=== PATIENT | male | born 1975 | race Two or more races ===

== ENCOUNTER 2024-08-25 19:48 | Inpatient (IN) | payer OTHER ==
[~2024-08-25] VITALS: Ht 177.8 cm; Wt 110.7 kg
[2024-08-25] MEDS ORDERED: [UNRECOGNIZED DRUG - OTHER] PO (20:08)
--- NOTE | 2024-08-25 20:11 | NUR ---
PTE ALERTA Y ORIENTADO X3, SE RAINA SV. PTE REFIERE QUE SE REALIZO [facility]. DR. SHAHZAD WEST ORDENO QUE VINIERA PARA EDWARD DE EMERGENCIAS PARA SER ADMITIDO. SE UBICA EN CAMA AREA DE OBSERVACION.
[2024-08-25] MEDS ORDERED: PANTOPRAZOLE SODIUM 40 MG/VIAL VIAL IV SCH (20:28)
[2024-08-25] MEDS ORDERED: 0.9 % SODIUM CHLORIDE 1,000 ML IV SCH (20:30)
[2024-08-25] MEDS ORDERED: ACETAMINOPHEN 500 MG GEL..CAP PO PRN (20:30)
[2024-08-25] MEDS ORDERED: ONDANSETRON HCL 4 MG in 0.9 % SODIUM CHLORIDE 50 ML IV PRN (20:30)
--- NOTE | 2024-08-25 20:47 | NUR ---
PACIENTE CON ORDENES DE ADMISION DIRECTA.
[2024-08-25 21:39] LABS: INR 1.05; PARTIAL THROMBOPLASTIN TIME 25.1 SECONDS (22.0-34.0); PROTHROMBIN TIME 11.4 SECONDS (9.0-11.5)
[2024-08-25 21:45] LABS: ALBUMIN 4.2 gm/dL (3.4-5.0); BILIRUBIN TOTAL 0.6 mg/dL (0.3-1.2); CALCIUM 8.8 mg/dL (8.5-10.1); CREATININE SERUM 1.17 mg/dL (0.70-1.30); GFR 66.54; GLOBULINA 3.5 G/DL (2.4-3.5); POTASSIUM 3.82 mEq/L (3.5-5.1); TOTAL PROTEIN 7.7 gm/dL (6.4-8.2)
[2024-08-25 21:52] LABS: COL EPI 81 SECONDS (82-175)
[2024-08-25 22:26] LABS: HEMATOCRIT 33.9 % (39.0-48.0); HEMOGLOBIN 11.4 g/dL (13-16.00); MEAN CELL VOLUME 82.2 fL (80.0-100.00); MEAN CORPUSCULAR HEMOGLOBIN 27.7 pg (27.00-32.0); MEAN CORPUSCULAR HGB CONC 33.7 g/dl (32.0-36.0); RED BLOOD COUNT 4.12 M/uL (4.00-6.00); RED CELL DISTRIBUTION WIDTH 17.8 % (11.5-14.5)
[2024-08-25 22:34] LABS: PLATELET COUNT 21 K/uL (150-450)
[2024-08-25 23:14] LABS: PH,URINE 6.5 (5.0-8.0); URINE APPEARANCE Clear; URINE BILIRRUBIN Negative (NEGATIVE); URINE BLOOD Negative; URINE COLOR Dark Yellow; URINE GLUCOSE Negative (NEGATIVE); URINE KETONE Negative (NEGATIVE); URINE LEUKOCYTE Negative; URINE NITRATE Negative; URINE PROTEIN Negative (NEGATIVE)
[2024-08-25 23:17] LABS: URINE BACTERIA 25.2 uL (0.0-1933); URINE RBC 2.4 uL (0.0-20.8)
[2024-08-25 23:21] LABS: URINE EPITHELIAL CELLS 0.3 uL (0.0-38.8); URINE WBC 0.6 uL (0.0-23.2)
[2024-08-26] MEDS ORDERED: CEFEPIME HCL 2,000 MG in 0.9 % SODIUM CHLORIDE 100 ML IV SCH (01:00)
[2024-08-26 03:05] VITALS: BP 100/60; O2SAT 95
[2024-08-26 08:40] VITALS: BP 92/50
[2024-08-26] MEDS ORDERED: IRON FUM,PS/FOLIC/BCOMP,C NO.9 1 CAP CAPSULE PO SCH (09:00)
[2024-08-26 18:15] VITALS: BP 108/50; O2SAT 98
[2024-08-26 20:42] LABS: HEMOGLOBIN 10.6 g/dL (13-16.00); MEAN CELL VOLUME 82.8 fL (80.0-100.00); MEAN CORPUSCULAR HEMOGLOBIN 27.5 pg (27.00-32.0); MEAN CORPUSCULAR HGB CONC 33.1 g/dl (32.0-36.0); RED BLOOD COUNT 3.86 M/uL (4.00-6.00); RED CELL DISTRIBUTION WIDTH 18.6 % (11.5-14.5)
[2024-08-26 21:19] LABS: PLATELET COUNT 35 K/uL (150-450)
[2024-08-27 00:46] VITALS: BP 93/56; O2SAT 95
[2024-08-27 08:30] VITALS: BP 112/59; O2SAT 97
[2024-08-27 17:00] VITALS: BP 105/57; O2SAT 100
[2024-08-28 00:36] VITALS: BP 100/55; O2SAT 98
[2024-08-28 08:00] VITALS: BP 129/61; O2SAT 98
[2024-08-28] MEDS ORDERED: levoFLOXacin 500 MG TABLET PO SCH (09:00)
== END 2024-08-28 11:05 | disposition home or self-care (01) | DRG 835 ==
LOC: ER 19:49 → SURH 20:55 → MEDJ 20:55 → SURH 08-26 21:44
PROVIDERS: General Practice; ADMIT Internal Medicine; ATTEND Internal Medicine
PROC: 30233R1 Transfusion of Nonautologous Platelets into Peripheral Vein, Percutaneous Approach (ICD-10-PCS; principal; 2024-08-26)
DX: C92.00 Acute myeloblastic leukemia, not having achieved remission (principal); D61.818 Other pancytopenia; D69.6 Thrombocytopenia, unspecified

== ENCOUNTER 2024-10-25 16:13 | Inpatient (IN) | payer OTHER ==
[~2024-10-25] VITALS: Ht 177.8 cm; Wt 237.7 kg
[~2024-10-25 16:13] MED LIST: [UNRECOGNIZED DRUG - OTHER] PO
[2024-10-25 17:01] LABS: MEAN CORPUSCULAR HGB CONC 34.1 g/dl (32.0-36.0); RED BLOOD COUNT 2.24 M/uL (4.00-6.00); RED CELL DISTRIBUTION WIDTH 17.4 % (11.5-14.5)
[2024-10-25 17:20] LABS: INR 1.08; PARTIAL THROMBOPLASTIN TIME 27.3 SECONDS (22.0-34.0); PROTHROMBIN TIME 11.7 SECONDS (9.0-11.5)
[2024-10-25 17:27] LABS: MEAN CORPUSCULAR HEMOGLOBIN 29.4 pg (27.00-32.0)
[2024-10-25 17:28] LABS: HEMATOCRIT 19.5 % (39.0-48.0); HEMOGLOBIN 6.6 g/dL (13-16.00)
[2024-10-25 17:30] LABS: PLATELET COUNT 12 K/uL (150-450)
[2024-10-25 17:37] LABS: ALBUMIN 3.9 gm/dL (3.4-5.0); BILIRUBIN TOTAL 0.78 mg/dL (0.3-1.2); CALCIUM 8.9 mg/dL (8.5-10.1); CREATININE SERUM 0.95 mg/dL (0.70-1.30); GFR 84.62; GLOBULINA 3.4 G/DL (2.4-3.5); POTASSIUM 4.35 mEq/L (3.5-5.1); TOTAL PROTEIN 7.3 gm/dL (6.4-8.2)
[2024-10-25] MEDS ORDERED: FUROsemide 20 MG/2 ML VIAL IV PRN (18:15)
[2024-10-25] MEDS ORDERED: 0.9 % SODIUM CHLORIDE 1,000 ML IV SCH (18:15)
[2024-10-25] MEDS ORDERED: ACETAMINOPHEN 325 MG TABLET PO PRN (18:30)
[2024-10-25] MEDS ORDERED: FILGRASTIM-AAFI 480 MCG/0.8 ML SYRINGE SUBCUTANEO STA (18:52)
[2024-10-26 00:37] VITALS: BP 100/59; O2SAT 95
[2024-10-26 08:00] VITALS: BP 103/65; O2SAT 94
[2024-10-26] MEDS ORDERED: MULTIVIT INFUSN,ADULT 4,VIT K 10 ML VIAL IV SCH (09:00)
[2024-10-26 11:00] VITALS: BP 118/71
[2024-10-26 16:00] VITALS: BP 111/66; O2SAT 95
[2024-10-26] MEDS ORDERED: FILGRASTIM-AAFI 480 MCG/0.8 ML SYRINGE SUBCUTANEO SCH (17:00)
[2024-10-26 22:26] LABS: MEAN CELL VOLUME 88.9 fL (80.0-100.00); MEAN CORPUSCULAR HGB CONC 34.7 g/dl (32.0-36.0); RED BLOOD COUNT 2.61 M/uL (4.00-6.00); RED CELL DISTRIBUTION WIDTH 15.9 % (11.5-14.5)
[2024-10-26 22:48] LABS: MEAN CORPUSCULAR HEMOGLOBIN 30.6 pg (27.00-32.0)
[2024-10-26 22:49] LABS: HEMATOCRIT 23.2 % (39.0-48.0); PLATELET COUNT 39 K/uL (150-450)
[2024-10-27 00:10] VITALS: BP 100/63; O2SAT 95
[2024-10-27 08:00] VITALS: BP 103/55; O2SAT 97
== END 2024-10-27 13:53 | disposition home or self-care (01) | DRG 835 ==
LOC: SURH 16:13
PROVIDERS: ADMIT Internal Medicine Hematology & Oncology; ATTEND Internal Medicine Hematology & Oncology
PROC: 30233N1 Transfusion of Nonautologous Red Blood Cells into Peripheral Vein, Percutaneous Approach (ICD-10-PCS; principal; 2024-10-25)
PROC: 30233R1 Transfusion of Nonautologous Platelets into Peripheral Vein, Percutaneous Approach (ICD-10-PCS; 2024-10-25)
DX: C92.02 Acute myeloblastic leukemia, in relapse (principal); D61.818 Other pancytopenia; D69.6 Thrombocytopenia, unspecified; Z92.21 Personal history of antineoplastic chemotherapy; Z20.822 Contact with and (suspected) exposure to COVID-19

== ENCOUNTER 2024-12-03 15:49 | Inpatient (IN) | payer OTHER ==
[~2024-12-03] VITALS: Ht 177.8 cm; Wt 108.0 kg
[2024-12-03] MEDS ORDERED: 0.9 % SODIUM CHLORIDE 1,000 ML IV SCH (18:15)
[2024-12-03] MEDS ORDERED: ONDANSETRON HCL 2 MG/ML VIAL IV PRN (18:30)
[2024-12-03] MEDS ORDERED: ACETAMINOPHEN 325 MG TABLET PO PRN (18:30)
[2024-12-03 19:52] LABS: MEAN CELL VOLUME 90.2 fL (80.0-100.00); MEAN CORPUSCULAR HGB CONC 32.9 g/dl (32.0-36.0); RED BLOOD COUNT 1.98 M/uL (4.00-6.00); RED CELL DISTRIBUTION WIDTH 15.2 % (11.5-14.5)
[2024-12-03 20:20] LABS: MEAN CORPUSCULAR HEMOGLOBIN 29.7 pg (27.00-32.0)
[2024-12-03 20:23] LABS: HEMATOCRIT 17.9 % (39.0-48.0)
[2024-12-03 20:31] LABS: HEMOGLOBIN 5.9 g/dL (13-16.00)
[2024-12-03 20:32] LABS: PLATELET COUNT 8 K/uL (150-450)
[2024-12-03 20:42] VITALS: BP 109/62; O2SAT 97
[2024-12-03 22:28] LABS: PH,URINE 5.5 (5.0-8.0); URINE APPEARANCE Clear; URINE BILIRRUBIN Negative (NEGATIVE); URINE BLOOD Negative; URINE COLOR Yellow; URINE GLUCOSE Negative (NEGATIVE); URINE KETONE Negative (NEGATIVE); URINE LEUKOCYTE Negative; URINE NITRATE Negative; URINE PROTEIN Negative (NEGATIVE)
[2024-12-03 22:31] LABS: URINE BACTERIA 13.4 uL (0.0-1933); URINE EPITHELIAL CELLS 2.8 uL (0.0-38.8); URINE RBC 2.5 uL (0.0-20.8); URINE WBC 5.3 uL (0.0-23.2)
[2024-12-03 22:37] LABS: URINE CAST 0.14 uL (0.0-1.40)
[2024-12-03 23:26] LABS: INR 1.16; PARTIAL THROMBOPLASTIN TIME 29.7 SECONDS (22.0-34.0); PROTHROMBIN TIME 12.5 SECONDS (9.0-11.5)
[2024-12-03 23:58] LABS: ALBUMIN 2.7 gm/dL (3.4-5.0); BILIRUBIN TOTAL 0.39 mg/dL (0.3-1.2); CALCIUM 8.4 mg/dL (8.5-10.1); CREATININE SERUM 1.19 mg/dL (0.70-1.30); GFR 65.25; GLOBULINA 3.2 G/DL (2.4-3.5); POTASSIUM 4.8 mEq/L (3.5-5.1); TOTAL PROTEIN 5.9 gm/dL (6.4-8.2)
[2024-12-04 02:31] VITALS: BP 113/56
[2024-12-04 08:25] VITALS: BP 117/59
[2024-12-04] MEDS ORDERED: MULTIVIT INFUSN,ADULT 4,VIT K 10 ML VIAL IV SCH (09:00)
[2024-12-04] MEDS ORDERED: DEFEROXAMINE MESYLATE 500 MG VIAL IV STA (11:25)
[2024-12-04 18:23] VITALS: BP 92/52; O2SAT 97
[2024-12-04] MEDS ORDERED: DEFEROXAMINE MESYLATE 500 MG VIAL IV SCH (21:00)
[2024-12-05 00:46] VITALS: BP 118/64; O2SAT 97
[2024-12-05 08:50] LABS: HEMATOCRIT 24.7 % (39.0-48.0); MEAN CELL VOLUME 86.8 fL (80.0-100.00); MEAN CORPUSCULAR HGB CONC 34.4 g/dl (32.0-36.0); RED BLOOD COUNT 2.84 M/uL (4.00-6.00); RED CELL DISTRIBUTION WIDTH 15.3 % (11.5-14.5)
[2024-12-05 11:44] LABS: MEAN CORPUSCULAR HEMOGLOBIN 29.9 pg (27.00-32.0)
[2024-12-05 11:49] LABS: PLATELET COUNT 6 K/uL (150-450)
[2024-12-05 12:07] LABS: HEMOGLOBIN 8.5 g/dL (13-16.00)
[2024-12-05 14:46] VITALS: BP 110/62
[2024-12-05 16:45] VITALS: BP 174/62; O2SAT 97
[2024-12-06 01:33] VITALS: BP 129/64
[2024-12-06 08:37] VITALS: BP 105/56; O2SAT 97
[2024-12-06 12:51] LABS: HEMATOCRIT 25.8 % (39.0-48.0); MEAN CELL VOLUME 86.5 fL (80.0-100.00); MEAN CORPUSCULAR HGB CONC 34.6 g/dl (32.0-36.0); RED BLOOD COUNT 2.98 M/uL (4.00-6.00)
[2024-12-06 13:29] LABS: MEAN CORPUSCULAR HEMOGLOBIN 29.8 pg (27.00-32.0)
[2024-12-06 13:30] LABS: HEMOGLOBIN 8.9 g/dL (13-16.00); PLATELET COUNT 30 K/uL (150-450)
[2024-12-06 17:22] VITALS: BP 126/63
== END 2024-12-06 17:46 | disposition home or self-care (01) | DRG 809 ==
LOC: MEDJ 15:49
PROVIDERS: ADMIT Internal Medicine Hematology & Oncology; ATTEND Internal Medicine Hematology & Oncology
PROC: 30233N1 Transfusion of Nonautologous Red Blood Cells into Peripheral Vein, Percutaneous Approach (ICD-10-PCS; principal; 2024-12-04)
PROC: 30233R1 Transfusion of Nonautologous Platelets into Peripheral Vein, Percutaneous Approach (ICD-10-PCS; 2024-12-05)
DX: D61.818 Other pancytopenia (principal); C92.02 Acute myeloblastic leukemia, in relapse; D63.0 Anemia in neoplastic disease
CPT/HCPCS: 240

== ENCOUNTER 2025-02-04 17:35 | Inpatient (IN) | payer OTHER ==
[2025-02-04] MEDS ORDERED: RINGERS SOLUTION,LACTATED 1,000 ML IV SCH (19:45)
[2025-02-04] MEDS ORDERED: ACETAMINOPHEN 325 MG TABLET PO PRN (19:45)
[2025-02-04] MEDS ORDERED: FUROsemide 20 MG/2 ML VIAL IV SCH (19:45)
[2025-02-04 20:31] LABS: MEAN CELL VOLUME 100.6 fL (80.0-100.00); MEAN CORPUSCULAR HGB CONC 29.6 g/dl (32.0-36.0); RED BLOOD COUNT 1.67 M/uL (4.00-6.00)
[2025-02-04 20:40] LABS: INR 1.28; PARTIAL THROMBOPLASTIN TIME 29.2 SECONDS (22.0-34.0); PROTHROMBIN TIME 13.7 SECONDS (9.0-11.5)
[2025-02-04 20:44] LABS: BILIRUBIN TOTAL 1.95 mg/dL (0.3-1.2); CALCIUM 8.9 mg/dL (8.5-10.1); CREATININE SERUM 1.02 mg/dL (0.70-1.30); GFR 77.62; GLOBULINA 3.7 G/DL (2.4-3.5); POTASSIUM 3.52 mEq/L (3.5-5.1); TOTAL PROTEIN 6.7 gm/dL (6.4-8.2)
[2025-02-04] MEDS ORDERED: TEMAZEPAM 15 MG CAPSULE PO SCH (21:00)
[2025-02-04 21:07] LABS: MEAN CORPUSCULAR HEMOGLOBIN 29.3 pg (27.00-32.0)
[2025-02-04 21:09] LABS: PLATELET COUNT 56 K/uL (150-450)
[2025-02-04 21:11] LABS: HEMATOCRIT 16.7 % (39.0-48.0); HEMOGLOBIN 4.9 g/dL (13-16.00)
[2025-02-05 01:30] VITALS: BP 96/56; O2SAT 95
[2025-02-05 08:20] VITALS: BP 96/58; O2SAT 95
[2025-02-05] MEDS ORDERED: MULTIVIT INFUSN,ADULT 4,VIT K 10 ML VIAL IV SCH (09:00)
[2025-02-05 16:05] VITALS: BP 101/60; O2SAT 95
[2025-02-06 00:44] LABS: HEMATOCRIT 25.9 % (39.0-48.0); MEAN CORPUSCULAR HGB CONC 30.8 g/dl (32.0-36.0); RED BLOOD COUNT 2.78 M/uL (4.00-6.00)
[2025-02-06 00:46] LABS: MEAN CORPUSCULAR HEMOGLOBIN 28.7 pg (27.00-32.0)
[2025-02-06 00:47] LABS: PLATELET COUNT 52 K/uL (150-450)
[2025-02-06 01:16] LABS: RED CELL DISTRIBUTION WIDTH 23.8 % (11.5-14.5)
[2025-02-06 08:19] VITALS: BP 105/62; O2SAT 96
[2025-02-06 15:59] VITALS: BP 101/60; O2SAT 100
== END 2025-02-06 16:40 | disposition home or self-care (01) | DRG 836 ==
LOC: MEDI 17:35 → SEC-K 17:56 → SURG 17:56 → SEC-K 18:10 → SURG 22:58
PROVIDERS: ADMIT Internal Medicine Hematology & Oncology; ATTEND Internal Medicine Hematology & Oncology
PROC: 8E0ZXY6 Isolation (ICD-10-PCS; principal; 2025-02-04)
PROC: 30233N1 Transfusion of Nonautologous Red Blood Cells into Peripheral Vein, Percutaneous Approach (ICD-10-PCS; 2025-02-05)
DX: C92.00 Acute myeloblastic leukemia, not having achieved remission (principal); D63.0 Anemia in neoplastic disease; D69.6 Thrombocytopenia, unspecified

== ENCOUNTER 2025-03-25 11:57 | Inpatient (IN) | payer OTHER ==
[~2025-03-25] VITALS: Ht 177.8 cm; Wt 90.7 kg
[2025-03-25 12:42] LABS: BASO % 1.3 % (0.1-1.2); LYMPH # 2.87 (1.18-3.74); LYMPH % 14.1 % (19.3-53.1); MEAN CORPUSCULAR HEMOGLOBIN 29.3 pg (25.6-32.2); MONO # 5.05 (0.24-0.82); NEUT # 8.29 (1.56-6.13); NEUT % 40.8 % (34.0-71.1); RED BLOOD COUNT 2.15 M/uL (4.63-6.08)
[2025-03-25 13:03] LABS: INR 1.26; PARTIAL THROMBOPLASTIN TIME 30.9 SECONDS (22.0-34.0); PROTHROMBIN TIME 13.5 SECONDS (9.0-11.5)
[2025-03-25] MEDS ORDERED: RINGERS SOLUTION,LACTATED 1,000 ML IV SCH (13:30)
[2025-03-25 13:35] LABS: HEMATOCRIT 22.6 % (40.1-51.0); MONO % 24.9 % (4.7-12.5)
[2025-03-25 13:36] LABS: PLATELET COUNT 63 K/uL (163-369)
[2025-03-25 13:37] LABS: HEMOGLOBIN 6.3 g/dL (13.7-17.5)
[2025-03-25] MEDS ORDERED: OxyCODONE HCL ER 10MG TAB (OxyCONTIN) PO PRN (13:45)
[2025-03-25] MEDS ORDERED: ACETAMINOPHEN 325 MG TABLET PO PRN (13:45)
[2025-03-25] MEDS ORDERED: FUROsemide 20 MG/2 ML VIAL IV PRN (13:45)
[2025-03-25 13:54] LABS: ALBUMIN 3.4 gm/dL (3.4-5.0); BILIRUBIN TOTAL 2.13 mg/dL (0.3-1.2); CALCIUM 8.4 mg/dL (8.5-10.1); CREATININE SERUM 0.82 mg/dL (0.70-1.30); GFR 99.86; GLOBULINA 3.4 G/DL (2.4-3.5); POTASSIUM 3.84 mEq/L (3.5-5.1); TOTAL PROTEIN 6.8 gm/dL (6.4-8.2)
[2025-03-25 16:55] VITALS: BP 96/58; O2SAT 99
[2025-03-25] MEDS ORDERED: MULTIVIT INFUSN,ADULT 4,VIT K 10 ML VIAL IV SCH (17:00)
[2025-03-25] MEDS ORDERED: CLONAZEPAM 1 MG TABLET PO SCH (21:00)
[2025-03-26 02:05] VITALS: BP 92/52; O2SAT 100
[2025-03-26 08:00] VITALS: BP 105/63; O2SAT 97
[2025-03-26] MEDS ORDERED: VITAMIN B COMPLEX 1 EACH PO SCH (09:00)
[2025-03-26] MEDS ORDERED: FAMOTIDINE/PF 20 MG in 0.9 % SODIUM CHLORIDE 8 ML IV PUSH SCH (14:03)
[2025-03-26] MEDS ORDERED: ONDANSETRON HCL 2 MG/ML VIAL IV SCH (17:00)
[2025-03-26 17:19] VITALS: BP 115/65; O2SAT 96
[2025-03-26 18:03] LABS: BASO % 1.8 % (0.1-1.2); HEMATOCRIT 28.7 % (40.1-51.0); LYMPH # 2.49 (1.18-3.74); LYMPH % 12.7 % (19.3-53.1); MONO # 4.89 (0.24-0.82); NEUT # 7.88 (1.56-6.13); NEUT % 40.3 % (34.0-71.1)
[2025-03-26 19:12] LABS: RED CELL DISTRIBUTION WIDTH 26.3 % (11.6-14.4)
[2025-03-26 19:15] LABS: PLATELET COUNT 73 K/uL (163-369)
[2025-03-26 19:20] LABS: HEMOGLOBIN 8.7 g/dL (13.7-17.5)
[2025-03-27 01:56] VITALS: BP 110/68; O2SAT 100
[2025-03-27 08:00] VITALS: BP 107/62; O2SAT 98
[2025-03-27 16:00] VITALS: BP 120/69; O2SAT 98
[2025-03-28 01:38] VITALS: BP 103/65; O2SAT 100
[2025-03-28 04:15] LABS: HEMATOCRIT 31.2 % (40.1-51.0); HEMOGLOBIN 9.4 g/dL (13.7-17.5); LYMPH # 6.34 (1.18-3.74); LYMPH % 27.9 % (19.3-53.1); MEAN CORPUSCULAR HEMOGLOBIN 28.7 pg (25.6-32.2); MONO # 2.65 (0.24-0.82); MONO % 11.7 % (4.7-12.5); NEUT # 8.45 (1.56-6.13); NEUT % 37.2 % (34.0-71.1); RED BLOOD COUNT 3.27 M/uL (4.63-6.08); RED CELL DISTRIBUTION WIDTH 24.6 % (11.6-14.4)
[2025-03-28 04:53] LABS: BASO % 2.9 % (0.1-1.2); PLATELET COUNT 47 K/uL (163-369)
[2025-03-28 08:00] VITALS: BP 108/65; O2SAT 95
[2025-03-28] MEDS ORDERED: OXYCONTIN10 M1 PO (12:08)
[2025-03-28] MEDS ORDERED: B Complex PO (12:09)
[2025-03-28] MEDS ORDERED: ZOFRAN8 MG PO (12:10)
== END 2025-03-28 12:37 | disposition home or self-care (01) | DRG 835 ==
LOC: SURH 11:57
PROVIDERS: ADMIT Internal Medicine Hematology & Oncology; ATTEND Internal Medicine Hematology & Oncology
PROC: 30233N1 Transfusion of Nonautologous Red Blood Cells into Peripheral Vein, Percutaneous Approach (ICD-10-PCS; principal; 2025-03-25)
DX: C92.02 Acute myeloblastic leukemia, in relapse (principal); D61.818 Other pancytopenia; D63.0 Anemia in neoplastic disease; K21.9 Gastro-esophageal reflux disease without esophagitis; Z92.21 Personal history of antineoplastic chemotherapy

== ENCOUNTER 2025-06-15 15:52 | Inpatient (IN) | payer OTHER ==
[~2025-06-15] VITALS: Ht 180.3 cm; Wt 99.8 kg
[~2025-06-15 15:52] MED LIST changes: +B Complex PO; +OXYCONTIN10 M1 PO; +ZOFRAN8 MG PO
[2025-06-15] MEDS ORDERED: FILGRASTIM-AAFI 480 MCG/0.8 ML SYRINGE SUBCUTANEO SCH (17:06)
[2025-06-15] MEDS ORDERED: KETOROLAC TROMETHAMINE 30 MG VIAL IV PRN (17:15)
[2025-06-15] MEDS ORDERED: RINGERS SOLUTION,LACTATED 1,000 ML IV SCH (17:15)
[2025-06-15] MEDS ORDERED: METHYLPREDNISOLONE SOD SUCC 40 MG VIAL IV SCH (17:15)
[2025-06-15] MEDS ORDERED: FILGRASTIM-AAFI 480 MCG/0.8 ML SYRINGE SUBCUTANEO STA (17:30)
[2025-06-15 17:53] LABS: BASO % 0.0 % (0.1-1.2); EOS # 0.00 (0.04-0.54); EOS % 0.0 % (0.7-7.0); LYMPH # 0.25 (1.18-3.74); LYMPH % 32.5 % (19.3-53.1); MONO # 0.02 (0.24-0.82); MONO % 2.6 % (4.7-12.5); NEUT # 0.49 (1.56-6.13); NEUT % 63.6 % (34.0-71.1); RED CELL DISTRIBUTION WIDTH 22.6 % (11.6-14.4)
[2025-06-15 18:30] LABS: INR 1.19
[2025-06-15 18:34] LABS: ALT/SGPT 30.0 U/L (12-78); AST/SGOT 20.0 U/L (15-37); BILIRUBIN TOTAL 0.64 mg/dL (0.3-1.2); BUN CREA RATIO 20.0 (7.0-25.0); CREATININE SERUM 0.69 mg/dL (0.70-1.30); GFR 121.87; GLOBULINA 3.0 G/DL (2.4-3.5); GLUCOSE FASTING 115.0 mg/dL (65-100); LDH 204.0 U/L (87-241); OSMOLALITY SERUM 288.0 MOSM/KG (275-295)
[2025-06-15 23:30] VITALS: BP 97/52; O2SAT 100
[2025-06-16] MEDS ORDERED: METHYLPREDNISOLONE SOD SUCC 40 MG VIAL ONE ×2 (00:29→01:47)
[2025-06-16 07:41] VITALS: BP 132/81; O2SAT 98
[2025-06-16 13:27] VITALS: BP 110/63; O2SAT 97
[2025-06-16] MEDS ORDERED: FILGRASTIM-AAFI 480 MCG/0.8 ML SYRINGE SUBCUTANEO SCH (17:00)
[2025-06-16 17:39] VITALS: BP 107/60
[2025-06-16 17:45] VITALS: BP 107/60
[2025-06-16 21:32] LABS: BASO % 0.0 % (0.1-1.2); EOS # 0.00 (0.04-0.54); EOS % 0.0 % (0.7-7.0); LYMPH # 0.44 (1.18-3.74); LYMPH % 9.7 % (19.3-53.1); MONO # 0.07 (0.24-0.82); MONO % 1.5 % (4.7-12.5); NEUT # 3.89 (1.56-6.13); NEUT % 86.1 % (34.0-71.1); RED CELL DISTRIBUTION WIDTH 19.9 % (11.6-14.4)
[2025-06-16 22:28] LABS: BAND MAN 4.0 %; LYMPHOCYTE MAN 10.0 %; NEUTROPHILS MAN 84.0 %
[2025-06-16 22:43] LABS: BLAST MAN 1.0 %
[2025-06-17 01:30] VITALS: BP 102/61; O2SAT 98
[2025-06-17 08:46] VITALS: BP 105/59; O2SAT 98
[2025-06-17 17:51] VITALS: BP 115/65
[2025-06-17] MEDS ORDERED: OxyCODONE HCL 5 MG TABLET (ROXICODONE) PO STA (20:04)
[2025-06-17] MEDS ORDERED: OxyCODONE HCL 5 MG TABLET (ROXICODONE) PO PRN (20:15)
[2025-06-17 21:30] LABS: BASO % 0.0 % (0.1-1.2); EOS # 0.00 (0.04-0.54); EOS % 0.0 % (0.7-7.0); LYMPH # 0.60 (1.18-3.74); LYMPH % 12.0 % (19.3-53.1); MONO # 0.12 (0.24-0.82); MONO % 2.4 % (4.7-12.5); NEUT # 3.99 (1.56-6.13); NEUT % 79.4 % (34.0-71.1); RED CELL DISTRIBUTION WIDTH 19.2 % (11.6-14.4)
[2025-06-17 21:49] LABS: LYMPHOCYTE MAN 10.0 %; NEUTROPHILS MAN 88.0 %
[2025-06-18 02:46] VITALS: BP 109/62; O2SAT 97
[2025-06-18 09:28] VITALS: BP 104/62; O2SAT 97
[2025-06-18] MEDS ORDERED: PERCOCET 5-3251 EACH PO (11:49)
== END 2025-06-18 12:04 | disposition home or self-care (01) | DRG 835 ==
LOC: SEC-K 15:52 → MEDJ 06-16 10:56
PROVIDERS: ADMIT Internal Medicine Hematology & Oncology; ATTEND Internal Medicine Hematology & Oncology
PROC: 30233R1 Transfusion of Nonautologous Platelets into Peripheral Vein, Percutaneous Approach (ICD-10-PCS; principal; 2025-06-16)
PROC: 30233N1 Transfusion of Nonautologous Red Blood Cells into Peripheral Vein, Percutaneous Approach (ICD-10-PCS; 2025-06-16)
DX: C92.02 Acute myeloblastic leukemia, in relapse (principal); D61.818 Other pancytopenia; D63.0 Anemia in neoplastic disease; G89.3 Neoplasm related pain (acute) (chronic)

== ENCOUNTER 2025-07-20 13:45 | Inpatient (IN) | payer OTHER ==
[~2025-07-20] VITALS: Ht 152.4 cm; Wt 96.6 kg
[2025-07-20 14:15] LABS: URINE APPEARANCE Cloudy; URINE BILIRRUBIN Negative (NEGATIVE); URINE BLOOD Trace; URINE COLOR Dark Yellow; URINE GLUCOSE Negative (NEGATIVE); URINE KETONE Trace (NEGATIVE); URINE LEUKOCYTE Trace; URINE NITRATE Negative; URINE PROTEIN 30 (NEGATIVE); URINE UROBILINOGEN 1.0 E.U./dl
[2025-07-20 14:20] LABS: URINE BACTERIA 13.1 uL (0.0-1933); URINE CAST 17.74 uL (0.0-1.40); URINE EPITHELIAL CELLS 61.2 uL (0.0-38.8); URINE RBC 16.2 uL (0.0-20.8); URINE WBC 28.1 uL (0.0-23.2)
[2025-07-20 14:41] LABS: BASO % 0.2 % (0.1-1.2); EOS # 0.01 (0.04-0.54); EOS % 0.0 % (0.7-7.0); LYMPH # 5.67 (1.18-3.74); LYMPH % 3.7 % (19.3-53.1); NEUT # 16.68 (1.56-6.13); NEUT % 10.7 % (34.0-71.1); RED CELL DISTRIBUTION WIDTH 19.5 % (11.6-14.4)
[2025-07-20 14:42] LABS: TYPE CELLS SQUAMOUS; URINE CRYSTALS FEW /HPF
[2025-07-20 14:43] LABS: URINE MUCUS SCANT; URINE YEAST FEW /hpf
[2025-07-20 14:50] VITALS: BP 152/57; O2SAT 95
[2025-07-20 14:55] LABS: INR 1.53
[2025-07-20] MEDS ORDERED: RINGERS SOLUTION,LACTATED 1,000 ML IV SCH (15:00)
[2025-07-20 15:01] LABS: ERYTHROCYTE SEDIMENTATION RATE > 130 mm/hr (0-15)
[2025-07-20] MEDS ORDERED: ERTAPENEM SODIUM 1,000 MG VIAL IV STA (15:05)
[2025-07-20 15:18] LABS: ALT/SGPT 33.0 U/L (12-78); AST/SGOT 37.0 U/L (15-37); BILIRUBIN TOTAL 1.14 mg/dL (0.3-1.2); BUN CREA RATIO 11.0 (7.0-25.0); CREATININE SERUM 1.32 mg/dL (0.70-1.30); GFR 57.65; GLOBULINA 3.7 G/DL (2.4-3.5); GLUCOSE FASTING 119.0 mg/dL (65-100); LDH 1151.0 U/L (87-241); OSMOLALITY SERUM 280.0 MOSM/KG (275-295)
[2025-07-20 16:15] LABS: MONO # 125.90 (0.24-0.82); MONO % 81.2 % (4.7-12.5)
[2025-07-20] MEDS ORDERED: AMINO ACIDS/PROTEIN HYDROLYS 30 ML BLIST.PACK PO SCH (17:00)
[2025-07-20] MEDS ORDERED: HYDROXYUREA 500 MG CAP PO SCH (17:00)
[2025-07-20 17:05] VITALS: BP 105/64
[2025-07-20 17:55] LABS: BAND MAN 1.0 %; LYMPHOCYTE MAN 3.0 %; MONOCYTE MAN 5.0 %; NEUTROPHILS MAN 10.0 %
[2025-07-20 17:56] LABS: BLAST MAN 70.0 %; METAMYELOCYTE 2.0 %; MYELOCYTE 3.0 %; PROMYELOCYTE 3.0 %
[2025-07-20] MEDS ORDERED: VANCOMYCIN HCL 1,000 MG VIAL IV SCH (21:00)
[2025-07-20] MEDS ORDERED: FAMOTIDINE/PF 20 MG/2 ML VIAL IV PUSH SCH (21:00)
[2025-07-21 02:10] VITALS: BP 107/65; O2SAT 98
[2025-07-21 08:36] VITALS: BP 115/63
[2025-07-21] MEDS ORDERED: ERTAPENEM SODIUM 1,000 MG VIAL IV SCH (09:00)
[2025-07-21] MEDS ORDERED: DICYCLOMINE HCL 20 MG TABLET PO STA (09:07)
[2025-07-21] MEDS ORDERED: ONDANSETRON HCL 2 MG/ML VIAL IV STA (09:07)
[2025-07-21] MEDS ORDERED: ONDANSETRON HCL 2 MG/ML VIAL IV PRN (09:15)
[2025-07-21] MEDS ORDERED: DICYCLOMINE HCL 20 MG TABLET PO SCH (14:00)
[2025-07-21 17:39] VITALS: BP 146/69; O2SAT 99
[2025-07-21 17:42] VITALS: BP 108/66; O2SAT 99
[2025-07-21 21:57] LABS: BASO % 0.2 % (0.1-1.2); EOS # 0.02 (0.04-0.54); EOS % 0.0 % (0.7-7.0); LYMPH # 5.47 (1.18-3.74); LYMPH % 3.8 % (19.3-53.1); NEUT # 17.55 (1.56-6.13); NEUT % 12.2 % (34.0-71.1); RED CELL DISTRIBUTION WIDTH 17.7 % (11.6-14.4)
[2025-07-21 22:58] LABS: MONO # 112.08 (0.24-0.82); MONO % 78.0 % (4.7-12.5)
[2025-07-21 22:59] LABS: LYMPHOCYTE MAN 4.0 %; METAMYELOCYTE 4.0 %; MONOCYTE MAN 2.0 %; MYELOCYTE 1.0 %; NEUTROPHILS MAN 7.0 %; PROMYELOCYTE 1.0 %
[2025-07-21 23:06] LABS: BLAST MAN 80.0 %
[2025-07-22 04:37] VITALS: BP 107/58; O2SAT 95
[2025-07-22] MEDS ORDERED: PIPERACILLIN/TAZOBACTAM SODIUM 3.375 GM VIAL IV SCH (09:00)
[2025-07-22 18:26] VITALS: BP 105/58; O2SAT 100
[2025-07-23 02:14] VITALS: BP 123/64; O2SAT 94
[2025-07-23] MEDS ORDERED: ACETAMINOPHEN 500 MG GEL..CAP PO PRN (09:30)
[2025-07-23 09:41] VITALS: BP 95/55
[2025-07-23 10:33] LABS: BASO % 0.2 % (0.1-1.2); EOS # 0.02 (0.04-0.54); EOS % 0.0 % (0.7-7.0); LYMPH # 6.07 (1.18-3.74); LYMPH % 3.3 % (19.3-53.1); NEUT # 29.59 (1.56-6.13); NEUT % 15.8 % (34.0-71.1); RED CELL DISTRIBUTION WIDTH 18.4 % (11.6-14.4)
[2025-07-23 10:59] LABS: MONO # 147.20 (0.24-0.82); MONO % 79.1 % (4.7-12.5)
[2025-07-23 11:13] LABS: URINE APPEARANCE Clear; URINE BILIRRUBIN Negative (NEGATIVE); URINE BLOOD Negative; URINE COLOR Yellow; URINE GLUCOSE Negative (NEGATIVE); URINE KETONE Negative (NEGATIVE); URINE LEUKOCYTE Trace; URINE NITRATE Negative; URINE PROTEIN 30 (NEGATIVE); URINE UROBILINOGEN 0.2 E.U./dl
[2025-07-23 11:17] LABS: URINE EPITHELIAL CELLS 30.2 uL (0.0-38.8); URINE RBC 19.0 uL (0.0-20.8); URINE WBC 6.7 uL (0.0-23.2)
[2025-07-23 11:41] LABS: BLAST MAN 90.0 %; MONOCYTE MAN 3.0 %; NEUTROPHILS MAN 7.0 %
[2025-07-23 11:50] LABS: URINE BACTERIA 3.5 uL (0.0-1933); URINE CAST 0.73 uL (0.0-1.40)
[2025-07-23 11:53] LABS: URINE YEAST FEW /hpf
[2025-07-23] MEDS ORDERED: PATIENTS OWN MEDICATION (MEDICAMENTO EN PISO) PO SCH (14:00)
[2025-07-23 14:19] LABS: ALT/SGPT 78.0 U/L (12-78); AST/SGOT 72.0 U/L (15-37); BILIRUBIN TOTAL 1.99 mg/dL (0.3-1.2); BUN CREA RATIO 11.0 (7.0-25.0); CREATININE SERUM 1.2 mg/dL (0.70-1.30); GFR 64.35; GLOBULINA 3.3 G/DL (2.4-3.5); GLUCOSE FASTING 137.0 mg/dL (65-100); OSMOLALITY SERUM 285.0 MOSM/KG (275-295)
[2025-07-23] MEDS ORDERED: POTASSIUM CHLORIDE IN WATER 100 ML IV NR (16:00)
[2025-07-23 18:19] VITALS: BP 115/68; O2SAT 98
[2025-07-24 02:04] VITALS: BP 111/66; O2SAT 96
[2025-07-24 08:05] VITALS: BP 114/69; O2SAT 95
[2025-07-24 08:22] LABS: BASO % 0.2 % (0.1-1.2); EOS # 0.01 (0.04-0.54); EOS % 0.0 % (0.7-7.0); LYMPH # 4.98 (1.18-3.74); LYMPH % 2.7 % (19.3-53.1); NEUT # 40.53 (1.56-6.13); NEUT % 22.2 % (34.0-71.1); RED CELL DISTRIBUTION WIDTH 18.9 % (11.6-14.4)
[2025-07-24 08:40] LABS: INR 1.59
[2025-07-24 09:00] LABS: AST/SGOT 87.0 U/L (15-37); BILIRUBIN TOTAL 1.05 mg/dL (0.3-1.2); BUN CREA RATIO 19.0 (7.0-25.0); CREATININE SERUM 1.26 mg/dL (0.70-1.30); GFR 60.83; GLOBULINA 3.3 G/DL (2.4-3.5); GLUCOSE FASTING 106.0 mg/dL (65-100); OSMOLALITY SERUM 289.0 MOSM/KG (275-295)
[2025-07-24 09:02] LABS: ALT/SGPT 118.0 U/L (12-78); LDH 1209.0 U/L (87-241)
[2025-07-24 10:25] LABS: MONO # 134.94 (0.24-0.82)
[2025-07-24 10:26] LABS: MONO % 73.6 % (4.7-12.5)
[2025-07-24 10:27] LABS: BAND MAN 0.0 %; BASOPHIL MAN 1.0 %; EOSINOPHIL MAN 0.0 %; LYMPHOCYTE MAN 4.0 %; MONOCYTE MAN 1.0 %; NEUTROPHILS MAN 6.0 %
[2025-07-24 10:28] LABS: BLAST MAN 77.0 %; METAMYELOCYTE 0.0 %; MYELOCYTE 3.0 %; PROMYELOCYTE 2.0 %
[2025-07-24 18:46] VITALS: BP 115/65; O2SAT 96
[2025-07-25 02:06] VITALS: BP 111/62; O2SAT 96
[2025-07-25 08:00] VITALS: BP 107/67
[2025-07-25] MEDS ORDERED: DEXAMETHASONE SODIUM PHOSPHATE 4 MG/ML VIAL IV STA (15:18)
[2025-07-25] MEDS ORDERED: DEXAMETHASONE SODIUM PHOSPHATE 4 MG/ML VIAL IV SCH (17:00)
[2025-07-25 17:30] LABS: BASO % 0.3 % (0.1-1.2); EOS # 0.00 (0.04-0.54); EOS % 0.0 % (0.7-7.0); LYMPH # 4.56 (1.18-3.74); LYMPH % 8.3 % (19.3-53.1); MONO # 42.56 (0.24-0.82); NEUT # 7.25 (1.56-6.13); NEUT % 13.3 % (34.0-71.1); RED CELL DISTRIBUTION WIDTH 18.2 % (11.6-14.4)
[2025-07-25 17:54] LABS: ALT/SGPT 68.0 U/L (12-78); AST/SGOT 34.0 U/L (15-37); BILIRUBIN TOTAL 0.95 mg/dL (0.3-1.2); BUN CREA RATIO 22.0 (7.0-25.0); CREATININE SERUM 1.12 mg/dL (0.70-1.30); GFR 69.68; GLOBULINA 3.3 G/DL (2.4-3.5); GLUCOSE FASTING 110.0 mg/dL (65-100); OSMOLALITY SERUM 288.0 MOSM/KG (275-295)
[2025-07-25] MEDS ORDERED: PHYTONADIONE 10 MG/ML AMPUL IV STA (17:56)
[2025-07-25 18:51] VITALS: BP 107/71
[2025-07-25 19:24] LABS: MONO % 77.8 % (4.7-12.5)
[2025-07-25 19:26] LABS: BASOPHIL MAN 1.0 %; BLAST MAN 76.0 %; LYMPHOCYTE MAN 3.0 %; METAMYELOCYTE 1.0 %; MONOCYTE MAN 3.0 %; MYELOCYTE 2.0 %; NEUTROPHILS MAN 11.0 %; PROMYELOCYTE 3.0 %
[2025-07-26 02:11] VITALS: BP 110/62; O2SAT 96
[2025-07-26 08:26] VITALS: BP 103/58; O2SAT 97
[2025-07-26] MEDS ORDERED: HALOPERIDOL LACTATE 5 MG/ML AMPUL IV PRN (09:00)
[2025-07-26] MEDS ORDERED: PHYTONADIONE 10 MG/ML AMPUL IV SCH (09:00)
[2025-07-26 16:12] VITALS: BP 107/62; O2SAT 97
[2025-07-26] MEDS ORDERED: DEXTROSE 5 % AND 0.9 % NACL 1,000 ML IV SCH (21:47)
[2025-07-26] MEDS ORDERED: ATROPINE SULFATE 0.4 MG/ML VIAL IV STA ×2 (21:48→22:58)
[2025-07-26 22:07] VITALS: O2SAT 95
[2025-07-27] VITALS (9 sets, daily range): BP systolic 99–120; BP diastolic 54–71; O2SAT 95–100
[2025-07-27 06:15] LABS: BASO % 0.9 % (0.1-1.2); EOS # 0.01 (0.04-0.54); EOS % 0.2 % (0.7-7.0); LYMPH # 2.52 (1.18-3.74); LYMPH % 39.0 % (19.3-53.1); MONO # 1.94 (0.24-0.82); NEUT # 1.15 (1.56-6.13); NEUT % 17.8 % (34.0-71.1); RED CELL DISTRIBUTION WIDTH 17.1 % (11.6-14.4)
[2025-07-27 07:53] LABS: MONO % 30.0 % (4.7-12.5)
[2025-07-27 07:54] LABS: LYMPHOCYTE MAN 69.0 %; MONOCYTE MAN 17.0 %; NEUTROPHILS MAN 14.0 %
[2025-07-28] VITALS (7 sets, daily range): BP systolic 101–130; BP diastolic 63–64; O2SAT 93–100
[2025-07-28 12:00] LABS: BASO % 1.0 % (0.1-1.2); EOS # 0.00 (0.04-0.54); EOS % 0.0 % (0.7-7.0); LYMPH # 0.74 (1.18-3.74); LYMPH % 36.5 % (19.3-53.1); MONO # 0.22 (0.24-0.82); MONO % 10.8 % (4.7-12.5); NEUT # 0.69 (1.56-6.13); NEUT % 34.0 % (34.0-71.1); RED CELL DISTRIBUTION WIDTH 17.1 % (11.6-14.4)
[2025-07-29] VITALS (9 sets, daily range): BP systolic 90–105; BP diastolic 50–64; O2SAT 97–100
[2025-07-29] MEDS ORDERED: DEXAMETHASONE SODIUM PHOSPHATE 4 MG/ML VIAL IV SCH
[2025-07-29 10:37] LABS: BASO % 1.9 % (0.1-1.2); EOS # 0.00 (0.04-0.54); EOS % 0.0 % (0.7-7.0); LYMPH # 0.51 (1.18-3.74); LYMPH % 32.7 % (19.3-53.1); MONO # 0.20 (0.24-0.82); NEUT # 0.49 (1.56-6.13); NEUT % 31.4 % (34.0-71.1); RED CELL DISTRIBUTION WIDTH 16.8 % (11.6-14.4)
[2025-07-29 11:11] LABS: MONO % 12.8 % (4.7-12.5)
[2025-07-29] MEDS ORDERED: BACLOFEN 10 MG TABLET PO NR (19:00)
[2025-07-30] VITALS (9 sets, daily range): BP systolic 105–121; BP diastolic 63–68; O2SAT 95–100
[2025-07-30 07:41] LABS: EOS # 0.00 (0.04-0.54); EOS % 0.0 % (0.7-7.0); LYMPH # 0.64 (1.18-3.74); LYMPH % 42.4 % (19.3-53.1); MONO # 0.04 (0.24-0.82); MONO % 2.6 % (4.7-12.5); NEUT # 0.49 (1.56-6.13); NEUT % 32.5 % (34.0-71.1); RED CELL DISTRIBUTION WIDTH 16.4 % (11.6-14.4)
[2025-07-30 07:54] LABS: ALT/SGPT 58.0 U/L (12-78); AST/SGOT 25.0 U/L (15-37); BILIRUBIN TOTAL 0.95 mg/dL (0.3-1.2); BUN CREA RATIO 25.0 (7.0-25.0); CREATININE SERUM 0.72 mg/dL (0.70-1.30); GFR 116.03; GLOBULINA 3.5 G/DL (2.4-3.5); GLUCOSE FASTING 152.0 mg/dL (65-100); OSMOLALITY SERUM 288.0 MOSM/KG (275-295)
[2025-07-30 08:53] LABS: BASO % 2.6 % (0.1-1.2)
[2025-07-30] MEDS ORDERED: BACLOFEN 10 MG TABLET PO SCH (09:00)
[2025-07-30 19:39] LABS: EOS # 0.00 (0.04-0.54); EOS % 0.0 % (0.7-7.0); LYMPH # 0.49 (1.18-3.74); LYMPH % 24.4 % (19.3-53.1); MONO # 0.15 (0.24-0.82); MONO % 7.5 % (4.7-12.5); NEUT # 0.84 (1.56-6.13); NEUT % 41.7 % (34.0-71.1); RED CELL DISTRIBUTION WIDTH 16.4 % (11.6-14.4)
[2025-07-30 19:48] LABS: BASO % 2.5 % (0.1-1.2)
[2025-07-31] VITALS (9 sets, daily range): BP systolic 92–111; BP diastolic 58–63; O2SAT 97–99
[2025-07-31 09:22] LABS: EOS # 0.00 (0.04-0.54); EOS % 0.0 % (0.7-7.0); LYMPH # 0.41 (1.18-3.74); LYMPH % 15.8 % (19.3-53.1); MONO # 0.44 (0.24-0.82); NEUT # 1.17 (1.56-6.13); NEUT % 45.0 % (34.0-71.1); RED CELL DISTRIBUTION WIDTH 16.2 % (11.6-14.4)
[2025-07-31 09:34] LABS: BASO % 2.3 % (0.1-1.2); MONO % 16.9 % (4.7-12.5)
[2025-07-31 09:51] LABS: BAND MAN 2.0 %; NEUTROPHILS MAN 70.0 %
[2025-07-31 09:52] LABS: LYMPHOCYTE MAN 12.0 %; MONOCYTE MAN 4.0 %
[2025-07-31 09:55] LABS: BLAST MAN 10.0 %
[2025-08-01] VITALS (8 sets, daily range): BP systolic 103–114; BP diastolic 59–73; O2SAT 97–99
[2025-08-01 06:46] LABS: BASO % 1.1 % (0.1-1.2); EOS # 0.00 (0.04-0.54); EOS % 0.0 % (0.7-7.0); LYMPH # 0.32 (1.18-3.74); LYMPH % 8.5 % (19.3-53.1); MONO # 0.64 (0.24-0.82); NEUT # 2.29 (1.56-6.13); NEUT % 60.7 % (34.0-71.1); RED CELL DISTRIBUTION WIDTH 16.5 % (11.6-14.4)
[2025-08-01 07:46] LABS: MONO % 17.0 % (4.7-12.5)
[2025-08-02] VITALS (7 sets, daily range): BP systolic 108–110; BP diastolic 65–66; O2SAT 96–99
[2025-08-02 12:38] LABS: EOS % 0.0 % (0.7-7.0); LYMPH % 5.6 % (19.3-53.1); MONO % 11.7 % (4.7-12.5); NEUT % 58.9 % (34.0-71.1); RED CELL DISTRIBUTION WIDTH 17.8 % (11.6-14.4)
[2025-08-02 12:39] LABS: BASO % 0.6 % (0.1-1.2); EOS # 0.00 (0.04-0.54); LYMPH # 0.26 (1.18-3.74); LYMPHOCYTE MAN 37.0 %; MONO # 0.54 (0.24-0.82); MONOCYTE MAN 9.0 %; NEUT # 2.72 (1.56-6.13); NEUTROPHILS MAN 49.0 %
[2025-08-03] VITALS (8 sets, daily range): BP systolic 94–113; BP diastolic 50–64; O2SAT 97–98
[2025-08-03] MEDS ORDERED: DEXAMETHASONE 4 MG TABLET PO SCH (01:00)
[2025-08-03] MEDS ORDERED: LevETIRAcetam 500 MG TAB. PO SCH (09:00)
[2025-08-03 12:02] LABS: BASO % 0.4 % (0.1-1.2); EOS # 0.00 (0.04-0.54); EOS % 0.0 % (0.7-7.0); LYMPH # 0.25 (1.18-3.74); LYMPH % 3.4 % (19.3-53.1); MONO # 0.77 (0.24-0.82); MONO % 10.5 % (4.7-12.5); NEUT # 4.17 (1.56-6.13); NEUT % 56.9 % (34.0-71.1); RED CELL DISTRIBUTION WIDTH 19.4 % (11.6-14.4)
[2025-08-03] MEDS ORDERED: BACLOFEN10 MG PO (18:24)
[2025-08-03] MEDS ORDERED: KEPPRA500 MG PO (18:25)
[2025-08-03] MEDS ORDERED: DEXAMETHASONE4 MG PO (18:26)
[2025-08-03] MEDS ORDERED: FAMOTIDINE20 MG PO (18:26)
[2025-08-03] MEDS ORDERED: PROTEINEX-18 LI30 ML PO (18:27)
== END 2025-08-03 18:48 | disposition home or self-care (01) | DRG 438 ==
LOC: MEDJ 13:45
PROVIDERS: Internal Medicine Infectious Disease; ADMIT Internal Medicine Hematology & Oncology; ATTEND Internal Medicine Hematology & Oncology
PROC: 30233R1 Transfusion of Nonautologous Platelets into Peripheral Vein, Percutaneous Approach (ICD-10-PCS; 2025-07-20)
PROC: 30233N1 Transfusion of Nonautologous Red Blood Cells into Peripheral Vein, Percutaneous Approach (ICD-10-PCS; 2025-07-21)
PROC: BW28ZZZ Computerized Tomography (CT Scan) of Head (ICD-10-PCS; 2025-07-25)
PROC: 0HBNXZZ Excision of Left Foot Skin, External Approach (ICD-10-PCS; principal; 2025-07-26)
PROC: BQ3FZZZ Magnetic Resonance Imaging (MRI) of Left Lower Leg (ICD-10-PCS; 2025-07-26)
PROC: 4A12X4Z Monitoring of Cardiac Electrical Activity, External Approach (ICD-10-PCS; 2025-07-26)
PROC: B24BYZZ Ultrasonography of Heart with Aorta using Other Contrast (ICD-10-PCS; 2025-07-27)
PROC: BW28ZZZ Computerized Tomography (CT Scan) of Head (ICD-10-PCS; 2025-07-28)
DX: K85.90 Acute pancreatitis without necrosis or infection, unspecified (principal); I61.9 Nontraumatic intracerebral hemorrhage, unspecified; C92.00 Acute myeloblastic leukemia, not having achieved remission; D84.9 Immunodeficiency, unspecified; L03.116 Cellulitis of left lower limb; D69.6 Thrombocytopenia, unspecified; L97.529 Non-pressure chronic ulcer of other part of left foot with unspecified severity

== ENCOUNTER → 2025-07-20 | Emergency (ER) | payer OTHER ==
[~2025-07-20] VITALS: Ht 177.8 cm; Wt 98.9 kg
[~2025-07-20] MED LIST changes: +PERCOCET 5-3251 EACH PO
[2025-07-20 13:13] VITALS: BP 101/61; O2SAT 98
== END | disposition left against medical advice (07) ==
LOC: ER 12:46
DX: Z53.21 Procedure and treatment not carried out due to patient leaving prior to being seen by health care provider (principal)